=== PATIENT | male | born 1945 | race Caucasian/White ===

== ENCOUNTER 2019-05-02 14:25 | Emergency (ER) | payer OTHER ==
[~2019-05-02] VITALS: Ht 188 cm; Wt 84.1 kg
[~2019-05-02 14:25] MED LIST: atropine 0.1mg/ml 10ml syringe ONE; epiNEPHrine 0.1mg/ml 10ml syringe ONE; etomidate 2mg/ml inj. ONE; naloxone 0.4 mg/ml inj ONE; rocuronium bromide 100mg/10ml (10mg/ml) injection IV ONE
[2019-05-02 14:30] VITALS: BP 126/90
[2019-05-02] MEDS ORDERED: albuterol 2.5 MG/3 ML nebule ONE (15:03)
--- NOTE | 2019-05-02 15:36 | NUR ---
Pt's daughter, Kindra Duenas ([phone]) called for status. Transferred to [facility].
--- NOTE | 2019-05-02 15:56 | NUR ---
Jayme Fermin, Dental Laboratory Technician Apprentice contacted ([phone]). Per Jayme, this is not a Dental Laboratory Technician Apprentice's case.
--- NOTE | 2019-05-02 16:12 | NUR ---
[facility] contacted. Per Shira, case #: [id number].
--- NOTE | 2019-05-02 16:32 | NUR ---
RT UNABLE TO CHART VENT ASSESSMENT, PT SPENT VERY LITTLE TIME ON THE VENT MAYBE 3 MINUTES, PT WAS NOT GETTING VOLUMES OVER 61ML
--- NOTE | 2019-05-02 16:38 | NUR ---
vasiliy Rivera extubated pt and removed right tibial IO in preparation for family to spend time with family.
--- NOTE | 2019-05-02 16:41 | NUR ---
Sister Kindra pandya. Bereavement cart ordered by DUNG Pulido.
--- NOTE | 2019-05-02 17:38 | NUR ---
Ghazal from [facility] called. Case @ [id number].
--- NOTE | 2019-05-02 17:42 | NUR ---
Per Kindra, pt was dx with prostate CA that had metastized. He had just completed chemotherapy and was slated to begin radiation. This information was not know to staff when communicating with [facility] personnel. Pt does not qualify for donation based on this information.
--- NOTE | 2019-05-02 17:57 | NUR ---
RT paged to Bed 4 for a Cardiac arrest coming in Code 3. Upon arrival at 1430, pt has labored, uneven breathing pattern. RT prepared a 7.5 ETT with a Mac 4 laryngoscope blade for MD. MD intubated pt at 1433 without difficulty prior to any medication given. Positive color change on ETCO2, condensation present in tubing. RT listening to breath sounds and reported to MD that the pt did not have even bilateral breath sounds, that the pts left side was very diminished. Bagging the pt was extremely difficult. Before obtaining a CXR, MD placed an OG tube with difficulty due to "OG being floppy". Pt then placed on ventilator by RT. Pt was not getting any tidal volumes over 80ml. RT then began to manually bag the pt again. At this time, pts color began to become very dusky and blue. RT reported this to MD and he elevated the pts head, almost immediately the pts color began to improve. A pulse check was done and the pt was found to be in asystole. MD insisted that we obtain a CXR before starting compressions, DUNG Pulido instructed that CPR be initiated immediately at 1443. While attempted to get the CXR film under the pt, CPR was started and the Don from [facility] instructed that we pull the film out and wait to get the Xray until CPR is finished. MD instructed that CPR be stopped so that he could get the CXR. CXR obtained and the findings were that the pt has a left-sided pneumothorax. CPR was resumed and MD asked for a chest tube kit. MD attempted two needle decompressions without success before placing the chest tube. CPR was stopped and started a few times during the insertion of the chest tube. During this time, no ACLS medications were given despite the RN asking. First dose of Epi given at 1454. Bedside ultrasound showing no cardiac activity. TOD announced at 1504. Priorities seemed to be OG tube and chest tube instead of giving ACLS medications. RT, RN, CRN, and strap cutting machine operator all voiced concerns during the whole process.
--- NOTE | 2019-05-02 18:04 | NUR ---
NO ACLS MEDS GIVEN FOR 25 MINUTES, MD LESTER FIXATED ON OG TUBE RATHER THAN OBTAINING CXR FOR TUBE PLACEMENT. MYSELF AND 2ND RT JEB DAY BOTH INFORMING MD OF DIFFICULTY BAGGING AND UNEVEN BREATH SOUNDS...MORE DIM ON LEFT. RN RUNNING CODE VOICED CONCERN SEVERAL TIMES DURING PROCESS ASKING FOR PULSE CHECKS AND INQUIRING ABOUT TIME OF EPI DOSE, RN WAS IGNORED. WAS TERSE WITH ALL STAFF AND [facility] SUPERVISOR DAVID. Addendum: 05/02/19 at 1809 by Sujata Friedman RT Amended: Links added.
--- NOTE | 2019-05-02 18:15 | NUR ---
Shared with talya Soni assuming care, family is requesting return of 2 rings currently being worn b y pt. She will communicate this to [facility] when they arrive.
--- NOTE | 2019-05-02 18:33 | NUR ---
CODE BLUE NOTE: [employer] ATTEND[employer] CALLED TO [facility] FOR SOB AND DIFFICULITY BREATHING 1-2 SENTENCES. SUDDEN WITNESSED AREST BY EMS, SEE EMS CHARTING. 1435 NO RESP, PT INTUBATED 1442 PULSLESS, PADS ATTATCHED 1443 CPR 1445 CPR STOPPED FOR CXR, CPR CONTINUED. CXR SHOWS LEFT PNUMO 1446 NEEDLE DECOMP. NO PULSE CPR CONTINUED 1448 CPR STOPPED FOR 2ND LEFT LUNG NEEDLE DECOMP, NO PULSE 1450 CPR CONTINUED 1453 LEFT CHEST TUBE PLACED, NO PULSE, CONTINUE CPR 1454 EPI, CPR CONTINUED 1456 NO PULSE, CPR CONTINUED 1457 EPI 1459 NO PULSE, CPR CONTINUED 1500 NARCAN, PARTIAL EPI VIA ET TUBE BY DR SHIPMAN REST VIA IV. 1501 NO PULSE, CXR, CPR CONTINUED 1502 ATOPINE IV, ALBUTEROL ET. 1503 US OF HEART SHOWS NO ELECTICAL ACTIVITY [address] SHIPMAN
--- NOTE | 2019-05-02 18:54 | NUR ---
[facility] CALLED, INFORMED HIM OF THE CANCER
--- NOTE | 2019-05-02 18:57 | NUR ---
I SHARED ARNULFO'S PHONE NUMBER WITH [facility].
--- NOTE | 2019-05-02 19:14 | NUR ---
CALLED [facility], NO ANSWER, LEFT A MESSAGE.
--- NOTE | 2019-05-02 19:51 | NUR ---
[facility] CALLED AND THEY ARE ON THEIR WAY
--- NOTE | 2019-05-02 19:54 | NUR ---
ARNULFO CALLED TO INFORM ME THAT INDEED THE HOME IS ON THE WAY.
--- NOTE | 2019-05-02 20:20 | NUR ---
HOME HERE TO TAKE THE PATIENT, HE IS AWARE OF THE TWO RINGS THAT THE FAMILY WANTS.
--- NOTE | 2019-05-02 20:32 | NUR ---
[facility] CALLED, INFORMED HIM THAT THE HOME PICKED HIM UP AND THE COMPANY NAME
== END 2019-05-02 20:21 | disposition expired ==
LOC: ER 14:26
DX: I46.9 Cardiac arrest, cause unspecified (principal); I10 Essential (primary) hypertension
CPT/HCPCS: 31500; 32551; 71045; 92950; 93005; 99285; J0171; J0461; J2310; 99284